=== PATIENT | female | born 1945 | race Caucasian/White ===

== ENCOUNTER 2016-12-11 16:34 | Outpatient (CLI) | payer MEDICARE ==
[2016-12-11 18:24] LABS: Prothrombin Time 16.1 SEC (12.0-14.7)
[2016-12-11 18:25] LABS: PTT 33.3 SEC (22.9-36.1)
[2016-12-11 18:42] LABS: #Basophils 0.1 thou/uL (0.0-0.2); #Lymphocytes 2.1 thou/uL (1.20-3.40); #Monocytes 0.6 thou/uL (0.11-0.59); #Neutrophils 6.9 thou/uL (1.40-6.50); %Basophils 0.6 % (0.0-1.0); %Eosinophils 0.1 % (0.0-10.0); %Monocytes 6.4 % (0.0-10.0); ALT (SGPT) 30 U/L (8-55); AST (SGOT) 28 U/L (5-34); Alkaline Phosphatase 106 U/L (40-150); Anion Gap 13 mmol/L (10-20); BUN (Urea Nitrogen) 33 mg/dL (9.8-20.1); Bilirubin, Total 0.5 mg/dL (0.2-1.2); Calc. Creatinine Clearance 0 mL/min (70-130); Calcium 9.5 mg/dL (7.8-10.44); Carbon Dioxide 26 mmol/L (23-31); Chloride 103 mmol/L (98-107); Estimated GFR-MDRD 47; Globulin 3.8 g/dL (2.4-3.5); Hematocrit 40.8 % (36.0-47.0); Mean Platelet Volume 10.9 fL (7.4-10.4); Protein, Total 7.5 g/dL (6.0-8.3); White Blood Cell (WBC) Count 9.8 thou/uL (4.8-10.8)
== END 2016-12-11 16:35 | disposition home or self-care (01) ==
LOC: LABBT 16:34
PROVIDERS: ATTEND Internal Medicine Cardiovascular Disease
DX: Z01.818 Encounter for other preprocedural examination (principal); I25.10 Atherosclerotic heart disease of native coronary artery without angina pectoris
CPT/HCPCS: 80053; 85025; 85610; 85730

== ENCOUNTER 2016-12-12 06:17 | Day surgery (SDC) | payer MEDICARE ==
[2016-12-11 17:03] VITALS: BMI 38.9
[~2016-12-12 06:17] MED LIST: Diazepam 5 MG TAB PO SCH
[2016-12-12] MEDS ORDERED: Diazepam 5 MG TAB ONE (06:33)
[2016-12-12] MEDS ORDERED: Midazolam HCl 2 mg/2 ml Vial ONE (07:38)
[2016-12-12] MEDS ORDERED: Fentanyl 100 MCG/2 ML VIAL ONE ×2 (07:38→09:08)
[2016-12-12] MEDS ORDERED: Nitroglycerin 100MG/250ML BOT 250 ML ONE (07:54)
[2016-12-12] MEDS ORDERED: Nitroglycerin 0.4 MG TAB (25 Tab Bottle) SL PRN (09:18)
[2016-12-12] MEDS ORDERED: Sodium Chloride 0.9% 1,000 ML IV SCH (09:18)
[2016-12-12] MEDS ORDERED: traMADol HCl 50 MG TAB PO PRN (09:18)
[2016-12-12] MEDS ORDERED: Acetaminophen/Codeine 30-300mg Tablet PO PRN ×2 (09:18)
[2016-12-12] MEDS ORDERED: Fentanyl 100 MCG/2 ML VIAL SLOW IVP PRN (09:20)
[2016-12-12] MEDS ORDERED: Iopamidol 370 76% 100 ML VIAL ONE (16:17)
--- NOTE | 2016-12-12 20:57 | DIS ---
HOSPITAL COURSE: Ms. Galloway underwent cardiac catheterization today that revealed the followin. Left main, no obstructive stenosis. 2. LAD, there is a long 60%-70% lesion after a large diagonal branch, distal LAD small. There is distal disease as well. The vessel tends to bend with systole in that area. It is not clear a intra myocardial, but it could be in that area. It does not seem to contract with systole, but bends in that area. Circumflex, there is an occluded obtuse marginal with a patent graft. Right coronary, there is nonobstructive plaque. Ejection fraction was normal. Patient was recommended continued medical therapy. Will add Crestor 40 mg a day , change to Brilinta at least for a month, hopefully, if she can afford it and add Imdur 60 mg a day. If the patient has intractable angina, stenting could be done in the LAD, but it is not clear if that is the source of her discomfort or if that would improve her symptoms. Consideration for PET scanning could be given to document ischemia prior to intervention. HO
== END 2016-12-12 13:35 | disposition home or self-care (01) ==
LOC: CCL 06:17
PROVIDERS: ATTEND Internal Medicine Cardiovascular Disease
DX: I25.119 Atherosclerotic heart disease of native coronary artery with unspecified angina pectoris (principal); I10 Essential (primary) hypertension; E11.9 Type 2 diabetes mellitus without complications; F17.210 Nicotine dependence, cigarettes, uncomplicated; E66.9 Obesity, unspecified; K21.9 Gastro-esophageal reflux disease without esophagitis; I82.409 Acute embolism and thrombosis of unspecified deep veins of unspecified lower extremity; Z68.39 Body mass index [BMI] 39.0-39.9, adult; Z79.84 Long term (current) use of oral hypoglycemic drugs; Z79.82 Long term (current) use of aspirin; Z79.4 Long term (current) use of insulin; Z79.52 Long term (current) use of systemic steroids; Z79.899 Other long term (current) drug therapy; Z88.8 Allergy status to other drugs, medicaments and biological substances; Z88.2 Allergy status to sulfonamides; Z91.041 Radiographic dye allergy status; Z88.5 Allergy status to narcotic agent; Z95.1 Presence of aortocoronary bypass graft; Z95.0 Presence of cardiac pacemaker; Z90.721 Acquired absence of ovaries, unilateral; Z90.710 Acquired absence of both cervix and uterus; Z90.2 Acquired absence of lung [part of]; Z98.890 Other specified postprocedural states
CPT/HCPCS: 76942; 80061; 93005; 93455; 93798; 96374; C1769; 93010; 99152; J1644; J2250; J3010; J7050

== ENCOUNTER 2017-11-10 12:32 | Outpatient (CLI) | payer MEDICARE ==
--- NOTE | 2017-11-10 14:55 | RAD ---
SUPINE ABDOMEN: Date: 11/10/17 HISTORY: Renal calculi. FINDINGS: There is a double pigtail right ureteral stent noted. Calcification overlies the stent in the mid pel vis and could potentially represent a ureteral calculus. There are numerous focal densities throughout the abdomen which appear to represent contrast within c olonic diverticula. Bowel content obscures both renal outlines and calculi may be obscured. Prominent stool throughout the colon. IMPRESSION: Double pigtail right ureteral stent. Calcifications overlies the distal stent in the mid pelvis regio n. POS: [facility]
== END 2017-11-10 12:33 | disposition home or self-care (01) ==
LOC: RAD 12:32
PROVIDERS: ATTEND Urology
DX: N20.0 Calculus of kidney (principal); Z96.0 Presence of urogenital implants
CPT/HCPCS: 74018; 81001; 87086

== ENCOUNTER 2017-11-25 08:53 | Day surgery (SDC) | payer MEDICARE ==
[2017-11-20 10:12] VITALS: BMI 38.9
[2017-11-25] MEDS ORDERED: Iothalamate Meglumine 60% 50 ML VIAL FS ONE (10:15)
[2017-11-25] MEDS ORDERED: Furosemide 20 MG/2 ML VIAL ONE (10:15)
[2017-11-25] MEDS ORDERED: Midazolam HCl 2 mg/2 ml Vial ONE (11:03)
[2017-11-25] MEDS ORDERED: Piperacillin/Tazobactam 3.375 GM VIAL ONE (11:10)
[2017-11-25] MEDS ORDERED: Fentanyl 100 MCG/2 ML VIAL ONE ×2 (11:12→14:18)
[2017-11-25] MEDS ORDERED: Piperacillin/Tazobactam 3.375 GM in Sodium Chloride 0.9% 100 ML IVPB SCH (11:15)
[2017-11-25] MEDS ORDERED: Ondansetron HCl/PF 4 MG/2 ML Vial ONE (13:17)
[2017-11-25] MEDS ORDERED: Phenazopyridine HCl 97.5 MG TABLET ONE ×2 (13:37)
--- NOTE | 2017-11-25 13:46 | OP ---
DATE OF PROCEDURE: 11/25/2017 PREOPERATIVE DIAGNOSES: Right ureteral and right renal stone. POSTOPERATIVE DIAGNOSES: Right ureteral and right renal stone. PROCEDURE: Cystoscopy, right ureteroscopy, right holmium laser lithotripsy, stone basketing, stent p lacement, 6 x 26 double-J with string and right extracorporeal shockwave lithotripsy. SURGEON: Krystal Sanderson M.D. ANESTHESIA: General, LMA. FINDINGS: Adequate fragmentation of a stone in the ureter and extracted as well as adequate fragment ation of the stone in the right lower pole. INDICATIONS: The patient is a 72-year-old female who was admitted acutely with UTI and stones at [facility] and [place] and had an urgent stent placed. A few days later, she returned with urosepsis with mult idrug resistant organism and had a PICC line and on long-term antibiotics that she is currently getti ng. Last urine culture was negative, so we proceeded with definitive stone therapy. The patient was brought into the room by Anesthesia, laid on the table in supine position. After rec eiving general anesthetic, her legs placed in lithotomy position with the right leg lower and her lef t leg elevated and then the perineum was prepped and draped in sterile fashion. Was unable to advanc e the scope so her urethra had to be dilated with sounds to a level of 24 Setswana and then a 22 Setswana with an obturator was able to be placed into the bladder. The stent was identified and grasped and brought out through the urethral meatus and then a wire placed in this with the stent removed leaving the wire in place. The rigid ureteroscope was taken up to where the level of the stone was previous ly noted on CT, but it was actually higher than that by approximately 4-5 cm, so it was identified in the mid ureter. Holmium laser lithotripsy busted up into 2 fragments. These were brought out one a t a time and sent for specimen. No other stone fragments were remaining and at this point, a stent w as placed over the wire with the cystoscope with a good coil visualized in the renal pelvis via fluor oscopy and a good coil visualized in the bladder via cystoscopy. The scope was broken apart carefull y. The string remained intact and then removed in its entirety, leaving the string intact and taped securely to the patient's right thigh and then she was returned to supine. The patient was transferred to the ESWL suite. In the supine position, the Dornier lithotripter was used to fragment her right lower pole stone which was actually able to be seen via fluoroscopy despit e its smaller size. So a total of 2000 shocks at a maximum level of 4/6 at a maximum rate of 70-90 p er minute were then delivered. Good fragmentation was noted. The patient tolerated procedure well a nd was then awakened and transferred to PACU in stable condition.
--- NOTE | 2017-11-25 14:08 | RAD ---
KUB: 11/25/2017 PROVIDED CLINICAL HISTORY: Preop. COMPARISON: 11/10/2017 FINDINGS: The abdominal bowel gas pattern is nonspecific. The right ureteral stent remains in place. The calc ulus, previously described, overlying the right hemipelvis, is no longer evident. No definite radiog raphically apparent urinary tract calculi. Surgical clips are seen in the left upper quadrant, media lly. IMPRESSION: No definite radiographically apparent urinary tract calculi. POS: [facility]AD[facility]I
[2017-11-25] MEDS ORDERED: Promethazine HCl 25 MG/ML VIAL ONE ×2 (14:18→15:13)
[2017-11-25] MEDS ORDERED: Morphine 4 MG/ML VIAL ONE (14:52)
[2017-11-25] MEDS ORDERED: B & O 30 MG SUPP ONE (15:06)
[2017-11-25] MEDS ORDERED: Oxybutynin 5 MG TAB ONE (15:07)
== END 2017-11-25 17:45 | disposition home or self-care (01) ==
LOC: SDC 08:53
PROVIDERS: ATTEND Urology
PROC: 0TF3XZZ Fragmentation in Right Kidney Pelvis, External Approach (ICD-10-PCS; principal; 2017-11-25)
PROC: 0TF68ZZ Fragmentation in Right Ureter, Via Natural or Artificial Opening Endoscopic (ICD-10-PCS; 2017-11-25)
PROC: 0T768DZ Dilation of Right Ureter with Intraluminal Device, Via Natural or Artificial Opening Endoscopic (ICD-10-PCS; 2017-11-25)
DX: N20.2 Calculus of kidney with calculus of ureter (principal); N28.9 Disorder of kidney and ureter, unspecified; K21.9 Gastro-esophageal reflux disease without esophagitis; M19.90 Unspecified osteoarthritis, unspecified site; I25.10 Atherosclerotic heart disease of native coronary artery without angina pectoris; M10.9 Gout, unspecified; I10 Essential (primary) hypertension; G47.33 Obstructive sleep apnea (adult) (pediatric); E11.9 Type 2 diabetes mellitus without complications; Z86.718 Personal history of other venous thrombosis and embolism; Z87.891 Personal history of nicotine dependence; Z79.02 Long term (current) use of antithrombotics/antiplatelets; Z79.4 Long term (current) use of insulin; Z79.82 Long term (current) use of aspirin; Z79.899 Other long term (current) drug therapy; Z88.1 Allergy status to other antibiotic agents; Z88.2 Allergy status to sulfonamides; Z88.5 Allergy status to narcotic agent; Z88.8 Allergy status to other drugs, medicaments and biological substances
CPT/HCPCS: 74018; 76000; 82365; 88300; 96374; 96375; C1758; J1940; J2250; J2270; J2405; J2543; J2550; J3010; J7050; Q9961

== ENCOUNTER 2017-12-25 08:36 | Outpatient (CLI) | payer MEDICARE ==
--- NOTE | 2017-12-25 09:54 | RAD ---
KUB: Comparison: 11-25-17 History: Two kidney stones removed from the right kidney 5 weeks ago. FINDINGS: Single view of the abdomen shows a nonspecific, nonobstructed bowel gas pattern. Surgical clips are s een at the near the gastroesophageal junction. The previously seen ureteral stent has been removed. N o obvious calcification projects over either renal shadow or along the course of the ureters. There a re stable phleboliths in the right abdomen. IMPRESSION: No urinary tract system calculi identified. POS: TPC
== END 2017-12-25 08:37 | disposition home or self-care (01) ==
LOC: RAD 08:36
PROVIDERS: ATTEND Urology
DX: N20.0 Calculus of kidney (principal)
CPT/HCPCS: 74018; 81001; 87086

== ENCOUNTER 2025-01-20 13:54 | Outpatient (CLI) | payer MEDICARE ==
[2025-01-20 14:48] LABS: #Basophils 0.06 10x3/uL (0.0-0.2); #Eosinophils 0.30 10x3/uL (0.0-0.7); #Monocytes 0.79 10x3/uL (0.11-0.59); #Neutrophils 6.43 10x3/uL (1.40-6.50); %Basophils 0.6 % (0.0-1.0); %Eosinophils 3.0 % (0.0-10.0); %Lymphocytes 22.6 % (21.0-51.0); %Monocytes 8.0 % (0.0-10.0); %Neutrophils 65.3 % (42.0-75.0); Hematocrit 43.2 % (36.0-47.0); Hemoglobin 13.6 g/dL (12.0-16.0); Mean Corpuscular Hemoglobin 27.2 pg (27.0-31.0); Mean Corpuscular Volume 86.4 fL (78.0-98.0); Platelet Count 134 10x3/uL (130-400); Red Blood Cell (RBC) Count 5.00 mill/uL (4.20-5.40); White Blood Cell (WBC) Count 9.86 10x3/uL (4.8-10.8)
[2025-01-20 15:20] LABS: ALT (SGPT) 17 U/L (Less than 34); AST (SGOT) 25 U/L (11-34); Albumin 3.6 g/dL (3.1-4.5); Alkaline Phosphatase 70 U/L (40-110); Anion Gap 13 mmol/L (10-20); BUN (Urea Nitrogen) 32 mg/dL (9.8-20.1); Bilirubin, Total 0.4 mg/dL (0.3-1.2); Calc. Creatinine Clearance 0 mL/min (70-130); Calcium 9.8 mg/dL (7.8-10.44); Carbon Dioxide 29 mmol/L (23-31); Chloride 102 mmol/L (98-107); Globulin 3.0 g/dL (2.4-3.5); Glucose 195 mg/dL (83-110); Potassium 4.8 mmol/L (3.5-5.1); Sodium 139 mmol/L (136-145)
== END 2025-01-20 13:55 | disposition home or self-care (01) ==
LOC: LABBT 13:54
PROVIDERS: ATTEND Internal Medicine Cardiovascular Disease
DX: Z01.812 Encounter for preprocedural laboratory examination (principal); I25.119 Atherosclerotic heart disease of native coronary artery with unspecified angina pectoris
CPT/HCPCS: 80053; 85025